=== PATIENT | male | born 1965 | race African-American/Black ===

== ENCOUNTER 2024-07-16 14:08 | Inpatient (IN) | payer MEDICARE, OTHER ==
[~2024-07-16] VITALS: Ht 167.6 cm; Wt 53.1 kg
[2024-07-16] MEDS ORDERED: QUET100T PO (14:19)
[2024-07-16 15:27] LABS: CREATININE 0.8 mg/dL (0.6-1.3); PLATELET COUNT (AUTO) 356 K/uL (152-348); RED BLOOD CELL COUNT(AUTO) 4.82 MIL/uL (4.06-5.63); RED CELL DISTRIBUTION WIDTH 17.0 % (12.1-16.2); SODIUM SERUM 140.0 mmol/L (136-145); UREA NITROGEN, BLOOD 13.0 mg/dL (7-18); WHITE BLOOD COUNT (AUTO) 4.0 K/uL (3.6-10.2)
[2024-07-16 15:29] LABS: ETHANOL < 3 MG/DL (0-10)
[2024-07-16 15:35] LABS: ASPARTATE AMINOTRANSFERASE 50.0 U/L (15-37); TOTAL PROTEIN, SERUM 6.9 g/dL (6.4-8.2)
[2024-07-16 15:41] LABS: *BILIRUBIN,URIN 1+ (NEGATIVE); *BLOOD, URINE NEGATIVE (NEGATIVE); *CLARITY,URINE CLEAR (CLEAR); *COLOR,URINE YELLOW (YELLOW); *KETONES,URINE TRACE (NEGATIVE); *PROTEIN,URINE 1+ (NEGATIVE); *UROBILINOGEN,URINE 2.0 E.U./dl (NORMAL); LEUKOCYTE ESTERASE ,URINE NEGATIVE (NEGATIVE); NITRITE, URINE NEGATIVE (NEGATIVE); UGLUCOSE NEGATIVE (NEGATIVE)
[2024-07-16 15:57] LABS: *AMPHETAMINE, URINE NEGATIVE (NEGATIVE); *BARBITURATE, URINE NEGATIVE (NEGATIVE); *BENZODIAZEPINE, URINE NEGATIVE (NEGATIVE); *CANNABINOID, URINE POSITIVE (NEGATIVE); *COCCAINE, URINE NEGATIVE (NEGATIVE); *OPIATE, URINE NEGATIVE (NEGATIVE); *PHENCYCLIDINE SCREEN,URINE NEGATIVE (NEGATIVE); FENTANYL, URINE NEGATIVE (NEGATIVE)
[2024-07-16] MEDS ORDERED: diphenhydrAMINE 50 MG/1 ML VIAL ONE ×2 (17:15→22:44)
[2024-07-16] MEDS ORDERED: MIDAZOLAM HCL 2 MG/2 ML VIAL ONE (17:16)
[2024-07-16] MEDS ORDERED: HALOPERIDOL LACTATE 5 MG/1 ML VIAL ONE ×2 (17:16→22:42)
[2024-07-16] MEDS: diphenhydrAMINE 50 MG/1 ML VIAL IM ONE ×2 (17:19→23:16)
[2024-07-16] MEDS: HALOPERIDOL LACTATE 5 MG/1 ML VIAL IM ONE ×2 (17:19→23:16)
[2024-07-16] MEDS: MIDAZOLAM HCL 2 MG/2 ML VIAL IM ONE (17:19)
[2024-07-16] MEDS ORDERED: DIAZEPAM 10 MG/2 ML DISP.SYRIN ONE (18:05)
[2024-07-16] MEDS: DIAZEPAM 10 MG/2 ML DISP.SYRIN IM ONE (18:09)
[2024-07-16] MEDS ORDERED: CLONIDINE HCL 0.2 MG TABLET ONE (19:29)
[2024-07-16] MEDS: CLONIDINE HCL 0.2 MG TABLET PO ONE (19:37)
[2024-07-16] MEDS ORDERED: LORAZEPAM 2 MG/1 ML VIAL ONE (22:43)
[2024-07-16 23:10] VITALS: BP 127/72; TEMP 98.2; O2SAT 99
[2024-07-16] MEDS: LORAZEPAM 2 MG/1 ML VIAL IM ONE (23:16)
[2024-07-16] MEDS ORDERED: MAG HYDROX/AL HYDROX/SIMETH 30 ML LIQUID UDC PO PRN (23:30)
[2024-07-16] MEDS ORDERED: ZOLPIDEM 5 MG TABLET PO PRN (23:30)
[2024-07-16] MEDS ORDERED: MAGNESIUM HYDROXIDE 30 ML LIQUID UDC PO PRN (23:30)
[2024-07-16] MEDS ORDERED: LORAZEPAM 1 MG TABLET PO PRN (23:30)
[2024-07-16] MEDS ORDERED: ACETAMINOPHEN 325 MG TABLET PO PRN (23:30)
[2024-07-17] MEDS: BLOOD SUGAR DIAGNOSTIC 1 EACH STRIP VI ONE (00:18)
[2024-07-17 07:17] LABS: GLUCOSE FASTING 79.0 mg/dL (70-115)
[2024-07-17] MEDS: LORAZEPAM 1 MG TABLET PO PRN (10:45)
[2024-07-17] MEDS: OLANZAPINE 10 MG VIAL IM ONE (11:18)
[2024-07-17] MEDS: diphenhydrAMINE 50 MG/1 ML VIAL IM ONE (14:19)
[2024-07-17] MEDS: HALOPERIDOL LACTATE 5 MG/1 ML VIAL IM ONE (14:19)
[2024-07-17] MEDS: ZOLPIDEM 5 MG TABLET PO PRN (22:20)
[2024-07-18 07:58] VITALS: BP 135/68; TEMP 97.2; O2SAT 99
[2024-07-18] MEDS: DIVALPROEX 250 MG TABLET.DR PO SCH (10:20)
[2024-07-18 16:40] VITALS: BP 132/72; TEMP 97.5; O2SAT 97
[2024-07-18 20:07] VITALS: BP 136/66; TEMP 98.1; O2SAT 98
[2024-07-19 08:48] VITALS: BP 111/73; TEMP 98.2; O2SAT 98
[2024-07-19 15:56] VITALS: BP 99/52; TEMP 98.2; O2SAT 98
[2024-07-19 19:49] VITALS: BP 115/69; TEMP 98.7; O2SAT 95
[2024-07-20 08:12] VITALS: BP 124/86; TEMP 98.2; O2SAT 98
[2024-07-20] MEDS: MULTIVITAMINS,THERAPEUTIC TABLET PO SCH (08:59)
[2024-07-20 15:56] VITALS: BP 97/60; TEMP 98.2; O2SAT 98
[2024-07-20] MEDS: HALOPERIDOL LACTATE 5 MG/1 ML VIAL IM ONE (16:41)
[2024-07-20] MEDS: diphenhydrAMINE 50 MG/1 ML VIAL IM ONE (16:42)
[2024-07-20 20:00] VITALS: BP 124/75; TEMP 98.4; O2SAT 98
[2024-07-20] MEDS: ATORVASTATIN 10 MG TABLET PO SCH (20:23)
[2024-07-21] MEDS: diphenhydrAMINE 50 MG/1 ML VIAL IM ONE (09:19)
[2024-07-21] MEDS: HALOPERIDOL LACTATE 5 MG/1 ML VIAL IM ONE (09:19)
[2024-07-21 10:45] VITALS: BP 122/71; TEMP 98.2; O2SAT 99
[2024-07-21] MEDS: OLANZAPINE 10 MG VIAL IM ONE (12:40)
[2024-07-22 08:26] VITALS: BP 115/85; TEMP 97.7; O2SAT 98
[2024-07-22] MEDS: chlorproMAZINE 50 MG/2 ML AMPUL IM ONE (08:44)
[2024-07-22] MEDS: NICOTINE 21 MG/24HR PATCH TD SCH (09:00)
[2024-07-23 08:24] VITALS: BP 120/73; TEMP 98; O2SAT 95
[2024-07-23 20:17] VITALS: BP 106/71; TEMP 98.1; O2SAT 95
[2024-07-24] MEDS: DIVALPROEX 250 MG TABLET.DR PO SCH (08:26)
[2024-07-24] MEDS: chlorproMAZINE 50 MG/2 ML AMPUL IM ONE (08:54)
[2024-07-24 19:52] VITALS: BP 148/71; TEMP 97.9; O2SAT 100
[2024-07-25 08:04] VITALS: BP 129/86; TEMP 98; O2SAT 100
[2024-07-25 15:11] VITALS: BP 141/78; TEMP 98; O2SAT 99
[2024-07-25 20:00] VITALS: BP 121/73; TEMP 99.4; O2SAT 100
[2024-07-26 08:22] VITALS: BP 103/69; TEMP 98; O2SAT 98
[2024-07-26 15:30] VITALS: BP 105/68; TEMP 98; O2SAT 100
[2024-07-26 20:00] VITALS: BP 115/69; TEMP 98.1; O2SAT 97
[2024-07-27 08:06] VITALS: BP 112/83; TEMP 98; O2SAT 98
[2024-07-28 08:38] VITALS: BP 120/85; TEMP 98; O2SAT 99
[2024-07-28 15:40] VITALS: BP 113/71; TEMP 98; O2SAT 99
[2024-07-28 19:59] VITALS: BP 132/74; TEMP 98.1; O2SAT 98
[2024-07-29] MEDS: diphenhydrAMINE 50 MG/1 ML VIAL IM ONE (12:18)
[2024-07-29] MEDS: HALOPERIDOL LACTATE 5 MG/1 ML VIAL IM ONE (12:21)
[2024-07-29 20:00] VITALS: BP 139/93; TEMP 97.8; O2SAT 99
[2024-07-30 08:30] VITALS: BP 113/77; TEMP 98.2; O2SAT 97
[2024-07-30] MEDS: LITHIUM CARBONATE 300 MG CAPSULE PO SCH (12:07)
[2024-07-30 19:47] VITALS: BP 122/79; TEMP 98.6; O2SAT 100
[2024-07-31 08:40] VITALS: BP 112/80; TEMP 97.9; O2SAT 99
[2024-07-31 16:35] VITALS: BP 139/88; TEMP 98; O2SAT 100
[2024-07-31 20:04] VITALS: BP 130/78; TEMP 98.2; O2SAT 98
[2024-08-01 09:00] VITALS: BP 122/83; TEMP 97.3; O2SAT 96
[2024-08-01 16:24] VITALS: BP 118/76; TEMP 98.1; O2SAT 98
[2024-08-01 20:09] VITALS: BP 120/78; TEMP 98; O2SAT 98
[2024-08-02 07:30] VITALS: BP 99/70; TEMP 98; O2SAT 98
[2024-08-02 19:49] VITALS: BP 104/68; TEMP 98.1; O2SAT 96
[2024-08-03 09:17] VITALS: BP 98/58; TEMP 98; O2SAT 98
[2024-08-03 15:50] VITALS: BP 132/83; TEMP 98; O2SAT 100
[2024-08-03 20:00] VITALS: BP 134/73; TEMP 98; O2SAT 97
[2024-08-04 09:14] VITALS: BP 116/86; TEMP 98; O2SAT 98
[2024-08-04 09:16] VITALS: BP 135/87; TEMP 98; O2SAT 98
[2024-08-04 15:29] VITALS: BP 139/96; TEMP 98; O2SAT 99
[2024-08-04 20:00] VITALS: BP 102/63; TEMP 98.2; O2SAT 98
[2024-08-05 08:38] VITALS: BP 113/72; TEMP 98; O2SAT 98
[2024-08-05 20:00] VITALS: BP 81/50; TEMP 98.1; O2SAT 96
[2024-08-06 08:24] VITALS: BP 94/64; TEMP 98.5; O2SAT 99
[2024-08-06 16:52] VITALS: BP 118/71; TEMP 98.1; O2SAT 98
[2024-08-06 20:33] VITALS: BP 112/68; TEMP 98.4; O2SAT 98
[2024-08-07 08:28] VITALS: BP 107/73; TEMP 98.5; O2SAT 99
[2024-08-07 16:38] VITALS: BP 111/68; TEMP 98.4; O2SAT 98
[2024-08-08 08:35] VITALS: BP 101/66; TEMP 97.6; O2SAT 97
[2024-08-08] MEDS ORDERED: HALOPERIDOL DECANOATE 50 MG/1 ML AMPUL IM ONE (11:15)
== END 2024-08-08 13:08 | DRG 885 ==
LOC: ER 14:08 → GPS 22:37
PROVIDERS: ADMIT Psychiatry & Neurology Psychiatry; ATTEND Internal Medicine
DX: F20.0 Paranoid schizophrenia (principal); Z68.1 Body mass index [BMI] 19.9 or less, adult; Z59.02 Unsheltered homelessness; E44.0 Moderate protein-calorie malnutrition; R62.7 Adult failure to thrive; E87.6 Hypokalemia; I10 Essential (primary) hypertension; E78.5 Hyperlipidemia, unspecified; Z86.19 Personal history of other infectious and parasitic diseases; F19.11 Other psychoactive substance abuse, in remission
CPT/HCPCS: 36415; 70030-TC; 80164; 84443; 85025; A4606; A4663; C1758; G0480; J1200; J1630; J2060; J2250; J2358; J3230; J3360; J3490; Q0161